=== PATIENT | male | born 1995 | race Caucasian/White ===

== ENCOUNTER 2024-02-28 14:44 | Emergency (ER) | payer OTHER, MEDICAID, SELFPAY ==
--- NOTE | 2024-02-28 14:42 | ED.SEIZURE ---
HPI - Seizure General Chief Complaint: Seizure Stated Complaint: Seizure Time Seen by Provider: 02/28/24 14:54 Source: patient, EMS, RN notes reviewed and old records reviewed Mode of arrival: EMS Limitations: no limitations History of Present Illness HPI Narrative: 28 year old male with autism, cochlear implants and pacemaker who comes in with concern for seizure activity. Mom states that he has been stuttering more today, she also states he has been having increased tremors. He does have essential tremor at baseline. She states he does sometimes have a little bit of stutter but was much worse yesterday into today. He was ambulating when he started have had some generalized shaking fell to the ground after being sort of caught up and furniture and lasted approximately 5 minutes with sort of decreased mentation initially and then improving over time. The she notes that they has been increasing his amitriptyline and weaning down his trazodone but he has also possibly stopped taking his clonazepam in the past week. He is on multiple medications. Allergic to sulfa, has had pacemaker and cochlear implants. No tobacco, alcohol or recreational drugs. Mom is his guardian. Related Data Home Medications Medication Instructions Recorded Confirmed Claritin 10 mg 02/28/24 amitriptyline 10 mg PO 02/28/24 cholecalciferol (vitamin D3) 25 25 mcg PO DAILY 02/28/24 02/28/24 mcg (1,000 unit) tablet clindamycin phosphate 1 % topical 1 applic topical DAILY 02/28/24 02/28/24 swab clonazepam 0.5 mg tablet 0.75 mg PO DAILY 02/28/24 02/28/24 famotidine 20 mg tablet 20 mg PO DAILY 02/28/24 02/28/24 fluoxetine 20 mg tablet 20 mg PO DAILY 02/28/24 02/28/24 fluticasone propionate 50 1 spray intranasal PRN PRN Allergy 02/28/24 02/28/24 mcg/actuation nasal Symptoms spray,suspension hydroxyzine HCl 10 mg tablet 10 mg PO BEDTIME 02/28/24 02/28/24 magnesium 200 mg tablet 200 mg PO DAILY 02/28/24 02/28/24 methylphenidate 20 mg/9 hr daily 20 mg transdermal DAILY 02/28/24 02/28/24 transdermal patch (Daytrana) multivitamin 1 tab PO DAILY 02/28/24 02/28/24 omega 1-vld-kwm-fish oil 02/28/24 potassium citrate 10 mEq (1,080 30 meq PO BID 02/28/24 02/28/24 mg) tablet,extended release prazosin 1 mg capsule 1 mg PO BEDTIME 02/28/24 02/28/24 propranolol 120 mg capsule,24 120 mg PO BEDTIME 02/28/24 02/28/24 hr,extended release risperidone 2 mg tablet 2 mg PO BEDTIME 02/28/24 02/28/24 trazodone 50 mg tablet 50 mg PO BEDTIME 02/28/24 02/28/24 Previous Rx's Medication Instructions Recorded clonazepam 0.5 mg tablet 0.75 mg (1.5 x 0.5 mg) PO BEDTIME 02/28/24 #20 tabs clonazepam 0.5 mg tablet 75 mg (150 x 0.5 mg) PO BEDTIME 02/28/24 #20 tabs Allergies Allergy/AdvReac Type Severity Reaction Status Date / Time Sulfa (Sulfonamide Allergy Unknown Verified 02/28/24 14:45 Antibiotics) Review of Systems Review of Systems ROS Unobtainable: All systems reviewed & are unremarkable except as noted in HPI and below Patient History Social History Smoking Status: Never smoker Exam Narrative Exam Narrative: GEN: well nourished, well appearing male, alert, patient appears to be in mild distress. HEENT: Atraumatic, pupils are equal round reactive to light, extraocular movements are intact, nares are clear, TMs are clear with no fluid, there is no conjunctival pallor. Throat is clear without any exudates, erythema, tonsillar enlargement or uvular deviation, no facial droop. HEART: Regular rate and rhythm without murmur, clicks, rubs. Pulses are equal in upper and lower extremities LUNGS:Lungs clear to auscultation, no wheezes, rales, crackles, chest moves symmetrically ABD:bowel sounds normal, soft, non-tender, no guarding, rebound, rigidity, no masses noted, no hepatosplenomegaly :No CVA tenderness MSCL: Non-tender, no muscle atrophy, muscles strength 5/5 upper and lower extremities, full range of motion. NEURO:CN 2-12 intact, sensation normal, no tremor. Initial Vital Signs Initial Vital Signs: Vital Signs Temperature 98.6 F 02/28/24 15:03 Pulse Rate 87 02/28/24 15:03 Respiratory Rate 19 02/28/24 15:03 Blood Pressure 137/89 02/28/24 15:03 Pulse Oximetry 99 02/28/24 15:03 Oxygen Delivery Method Room Air 02/28/24 15:03 Course Orders Ordered: Discontinued Medications Clonazepam (Clonazepam 0.5 Mg Tablet) 0.5 mg PO NOW ONE Stop: 02/28/24 15:44 Last Admin: 02/28/24 15:53 Dose: 0.5 mg Documented By: MICHELLE Levetiracetam 1,000 mg/ Sodium (Chloride) 110 mls @ 440 mls/hr IV NOW ONE Stop: 02/28/24 15:00 Last Infusion: 02/28/24 15:59 Dose: Infused Documented By: Admin: 02/28/24 15:42 Dose: 440 mls/hr Documented By: MICHELLE Sodium Chloride (Normal Saline 0.9%) 1,000 mls @ 1,000 mls/hr IV BOLUS ONE Stop: 02/28/24 16:00 Last Infusion: 02/28/24 17:39 Dose: Infused Documented By: Admin: 02/28/24 15:42 Dose: 1,000 mls/hr Documented By: MICHELLE Vital Signs Vital signs: Vital Signs - 8 hr 02/28/24 15:03 Temperature 98.6 F Pulse Rate 87 Respiratory Rate 19 Blood Pressure 137/89 Pulse Oximetry 99 Oxygen Delivery Method Room Air MDM - Seizure Lab Data 02/28/24 14:55 02/28/24 14:55 Labs: Lab Results 02/28/24 02/28/24 02/28/24 Range/Units 14:55 17:04 17:04 WBC 9.1 (4.5-11.0) X10^3/uL RBC 4.56 (4.5-5.9) X10^6/uL Hgb 14.1 (13.5-17.5) g/dL Hct 40.8 L (41-53) % MCV 89.4 (80-100) fL MCH 30.9 (26-34) PG MCHC 34.5 (30-36) % RDW 12.6 (11.6-14.8) % Plt Count 201 (150-400) X10^3/uL Neut % (Auto) 79.9 H (50-75) % Lymph % (Auto) 12.6 L (25-40) % [place] % (Auto) 6.9 (3-14) % Eos % (Auto) 0.4 L (2-4) % Baso % (Auto) 0.2 (0-2) % Neut # (Auto) 7300 H (8480-5683) /uL Lymph # (Auto) 1100 (8264-9712) /uL [place] # (Auto) 600 (0-900) /uL Eos # (Auto) 0 (0-450) /uL Baso # (Auto) 0 (0-100) /uL Sodium 138 (137-145) mmol/L Potassium 4.7 (3.4-5.1) mmol/L Chloride 106 (98-107) mmol/L Carbon Dioxide 26 (22-32) mmol/L BUN 16 (9-20) mg/dL Creatinine 0.78 (0.66-1.25) mg/dL Estimated GFR > 60 (>60) mL/min BUN/Creatinine Ratio 20.5 (6-22) Glucose 89 (70-100) mg/dL Calcium 9.5 (8.4-10.2) mg/dL Total Bilirubin 0.6 (0.2-1.3) mg/dL AST 30 (17-59) IU/L ALT 23 (<50) IU/L Alkaline Phosphatase 70 (38-126) U/L Total Creatine Kinase 86 (55-170) U/L Troponin I < 0.012 (0.01-0.034) ng/mL Total Protein 8.0 (6.3-8.2) g/dL Albumin 4.9 (3.5-5.0) g/dL Globulin 3.1 (1.7-4.1) g/dL Albumin/Globulin Ratio 1.6 (1.0-2.8) TSH 1.46 (0.47-4.68) uIU/mL Urine Color Yellow Urine Appearance Clear Urine pH 7.0 Normal (4.5-8.0) Ur Specific [place] 1.010 (1.000-1.035) Urine Protein Negative (Negative) Urine Glucose (UA) Negative (Negative) g/dL Urine Ketones Trace H (NEGATIVE) Urine Occult Blood Negative (Negative) Urine Nitrate Negative (Negative) Urine Bilirubin Negative (NEGATIVE) Urine Urobilinogen 0.2 (0.2) E.U./dL Ur Leukocyte Esterase Negative (NEGATIVE) Urine RBC None seen (0-5/HPF) Urine WBC 0-1/hpf (0-5/HPF) Ur Squamous Epith Cells None seen (0-5/HPF) Calcium Oxalate Crystal Occasional H Urine Bacteria Occasional (0-1) (None) Urine Mucus 1+ H (Negative) Ur Culture Indicated? Cult not indicated Vol Urine Centrifuged 10ml (spun) U Opiates 300ng/mL cut Negative (Negative) Ur Oxycodone Screen Negative (Negative) Urine Methadone Screen Negative (Negative) Ur Barbiturates Screen Negative (Negative) U Tricyclic Antidepress Positive H (Negative) Ur Phencyclidine Scrn Negative (Negative) Ur Amphetamines Screen Negative (Negative) U Methamphetamines Scrn Negative (Negative) Ur MDMA Scrn (Ecstasy) Negative (Negative) U Benzodiazepines Scrn Negative (Negative) Urine Cocaine Screen Negative (Negative) U Marijuana (THC) Screen Negative (Negative) Urine Specific [place] Normal (Normal) Ethyl Alcohol < 10 ( - 10) mg/dL Ur Creatinine Normal (Normal) Imaging Data Chest x-ray: Radiologist's Impression: [place] [address] XRay Report Signed Patient: Igor Connor MR#: [id number] : 1995 Acct:[id number] Age/Sex: 28 / M Date of Service: 02/28/24 Loc: ED Accession Number: [id number] Procedure: XR chest 1V Ordering Provider: Fannie Carranza D.O. PROCEDURE: XR CHEST 1V INDICATIONS: seizure like activity TECHNIQUE: One view of the chest was acquired. COMPARISON: None. FINDINGS: Surgical changes and devices: Left chest wall pacemaker leads are in the region of right atrium and right ventricle. Lungs and pleura: Lungs are clear. No pleural effusions or pneumothorax. Mediastinum: Mediastinal contours appear normal. Heart size is normal. Bones and chest wall: No suspicious bony lesions. Overlying soft tissues appear unremarkable. IMPRESSION: No acute cardiopulmonary pathology. Dictated by: Ian Gonsalez M.D. on 02/28/2024 at 15:31 Approved by: Ian Gonsalez M.D. on 02/28/2024 at 15:31 ECG Data Attestation: I personally reviewed and interpreted this ECG as follows: Prior ECG tracings: not available for review Interpretation: Sinus rhythm rate of 90 UT 132 QRS 82 QTC 442. No acute ST changes appreciated. No priors for comparison. MDM Narrative Medical decision making narrative: 28-year-old male had what sounds like seizure-like activity witnessed by his mother. Patient is autistic has cochlear implants has a pacemaker his mom is his legal guardian. Patient has recently had medication changes including starting amitriptyline weaning down trazodone and may have stopped his own clonazepam on his own in the past week. This may have contributed to potential seizure-like activity he does not have a known history. Per EMS glucose was 100, no significant arrhythmias or other changes for them. Mom states his mentation has been slowly improving during transport. Labs show white count of 9.1 hemoglobin of 14 platelets of 201, electrolytes are appropriate with a sodium of 138 creatinine 0.78 glucose 89 calcium of 9.5, negative troponin, TSH EKG shows sinus rhythm with a rate of the 90s Head CT shows no acute change, presents bilateral cochlear implants with significant beam hardening artifact. CT C-spine no acute fracture or traumatic subluxation. Chest x-ray no acute change. Patient received a 1L fluids to get a dose of Keppra here in the department, patient take 0.75 mg of clonazepam.? We will give a small oral dose of 0.5 mg as he has reportedly stopped this suddenly and was taking it daily before. Pacemaker was interrogated. Patient has dual-chamber pacemaker present for 5 years more atrial than ventricularly paced, atrial rate of 190 family 1:25 p.m. for 1 minute ventricular rate in the 150s. Patient has had prior episodes 2 or 3 times recently. Discussed with mom she called 911 leave it was happening which was 1:41 p.m. she did double check her phone. Unlikely source for his episode but discussed they need to follow up with Dr. Castillo which she is comfortable with them they state that his pacer is checked every 2 weeks. Suspect that he with his changes in medications since stopping clonazepam had significant chemical changes lowered seizure threshold. Plan for seizure precautions. We will stop adding the amitriptyline they will return to trazodone we will refill his clonazepam as they can not find the bottle. Patient feels improved here in the department and although still somewhat tired his mentation has returned to normal. All questions answered for both patient and his mother. Discharge Plan Departure Patient Disposition: Home Clinical Impression: Seizure Activity Restrictions/Additional Instructions: Please follow up with your primary care physician but there is also contact to follow up with neurology. Please call to set up an appointment tomorrow. Your pacemaker was interrogated and did show heart rate in the 150s for 1 minute approximately 20 minutes before your episode today, let Dr. Castillo know and follow up as needed. You may have had a seizure today I suspect it maybe related to changing your medications and suddenly stopping your clonazepam. Stop the amitriptyline. Continue with your trazodone your prior medication, please continue your clonazepam. Prescription was sent to [facility] in [place]. Please return for any alterations in mental status, recurrent seizure activity, difficulty with breathing, persistent vomiting, new changes with movement or other new or concerning changes. Prescriptions: New clonazepam 0.5 mg tablet 75 mg PO BEDTIME Qty: 20 0RF Rx Instructions: administer 30 minutes before bedtime clonazepam 0.5 mg tablet 0.75 mg PO BEDTIME Qty: 20 0RF Rx Instructions: administer 30 minutes before bedtime No Action amitriptyline 10 mg PO Patient Comments: Recent dose adjustment on 02/26/2024 cholecalciferol (vitamin D3) 25 mcg (1,000 unit) Tablet 25 mcg PO DAILY clindamycin phosphate [Clindamycin] 1 % Swab 1 applic TOPICAL DAILY clonazepam 0.5 mg Tablet 0.75 mg PO DAILY famotidine 20 mg Tablet 20 mg PO DAILY Patient Comments: at bedtime Rx Instructions: at bedtime fluoxetine 20 mg Tablet 20 mg PO DAILY fluticasone propionate [Flonase] 50 mcg/actuation [place],Suspension 1 spray INTRANASAL PRN PRN (Reason: Allergy Symptoms) Rx Instructions: administer into each nostril; as needed hydroxyzine HCl 10 mg Tablet 10 mg PO BEDTIME Claritin 10 mg Rx Instructions: at night magnesium 200 mg Tablet 200 mg PO DAILY methylphenidate [Daytrana] 20 mg/9 hr Patch 24 Hour 20 mg TRANSDERMAL DAILY Rx Instructions: do not leave patch on for more than 9 hrs multivitamin [Daily Multivitamin] Tablet 1 tab PO DAILY omega 0-jcs-cba-fish oil potassium citrate 10 mEq (1,080 mg) Tablet Extended Release 30 meq PO BID prazosin 1 mg Capsule 1 mg PO BEDTIME propranolol 120 mg Capsule,Extended Release 24 Hr 120 mg PO BEDTIME risperidone 2 mg Tablet 2 mg PO BEDTIME trazodone 50 mg Tablet 50 mg PO BEDTIME Referrals: Jose Castillo MD [Physician] - Miscellaneous,MD Idalmis [Primary Care Provider] - Shakeel Wilks MD [Non-Staff] - Stand Alone Forms: Patient Portal/API
--- NOTE | 2024-02-28 14:54 | DI.CT.S_ITS ---
PROCEDURE: CT CERVICAL SPINE WO CON INDICATIONS: seizure like activity, new onset, fall, cochlear implants TECHNIQUE: Noncontrast 3 mm thick sections acquired from the skull base to the T4 level. Sagittal and coronal reformats were then constructed. For radiation dose reduction, the following was used: automated exposure control, adjustment of mA and/or kV according to patient size. COMPARISON: None. FINDINGS: Image quality: Excellent. Bones: No fractures or dislocations. Visualized superior ribs are intact. Soft tissues: Prevertebral soft tissues are normal in thickness. No paravertebral hematomas. No apical pneumothoraces. Left chest wall pacemaker is seen. IMPRESSION: No displaced fracture or traumatic subluxation. Dictated by: Ian Gonsalez M.D. on 02/28/2024 at 15:34 Approved by: Ian Gonsalez M.D. on 02/28/2024 at 15:35
--- NOTE | 2024-02-28 14:54 | DI.RAD.S_ITS ---
PROCEDURE: XR CHEST 1V INDICATIONS: seizure like activity TECHNIQUE: One view of the chest was acquired. COMPARISON: None. FINDINGS: Surgical changes and devices: Left chest wall pacemaker leads are in the region of right atrium and right ventricle. Lungs and pleura: Lungs are clear. No pleural effusions or pneumothorax. Mediastinum: Mediastinal contours appear normal. Heart size is normal. Bones and chest wall: No suspicious bony lesions. Overlying soft tissues appear unremarkable. IMPRESSION: No acute cardiopulmonary pathology. Dictated by: Ian Gonsalez M.D. on 02/28/2024 at 15:31 Approved by: Ian Gonsalez M.D. on 02/28/2024 at 15:31
--- NOTE | 2024-02-28 14:54 | DI.CT.S_ITS ---
PROCEDURE: CT HEAD/BRAIN WO CON INDICATIONS: seizure like activity TECHNIQUE: Noncontrast 4.5 mm thick angled axial sections acquired from the foramen magnum to the vertex, with coronal and sagittal reformats. For radiation dose reduction, the following was used: automated exposure control, adjustment of mA and/or kV according to patient size. COMPARISON: None. FINDINGS: Image quality: Diagnostic. Bilateral cochlear implants are seen causing significant beam hardening artifacts. CSF spaces: Basal cisterns are patent. No extra-axial fluid collections. Ventricles are normal in size and shape. Brain: No midline shift. No intracranial masses or hemorrhage. [place]-white matter interface is normal. Skull and face: Calvarium and visualized facial bones are intact, without suspicious lesions. Sinuses: Visualized sinuses and mastoids are clear. IMPRESSION: 1. No gross acute intracranial pathology. 2. Presence of bilateral cochlear implants with significant beam hardening artifacts. Dictated by: Ian Gonsalez M.D. on 02/28/2024 at 15:35 Approved by: Ian Gonsalez M.D. on 02/28/2024 at 15:36
[2024-02-28 15:03] VITALS: BP 137/89; PULSE 87; RESP 19; TEMP 37; O2SAT 99; BMI 20.3
[2024-02-28 15:14] LABS: Add Manual Diff / Slide Review NO; Alanine Aminotransferase 23 IU/L (<50); Albumin 4.9 g/dL (3.5-5.0); Albumin Globulin Ratio 1.6 (1.0-2.8); Alkaline Phosphatase 70 U/L (38-126); Aspartate Aminotransferase 30 IU/L (17-59); BUN Creatinine Ratio 20.5 (6-22); Basophils Absolute Auto 0 /uL (0-100); Basophils Percent Auto 0.2 % (0-2); Bilirubin Total 0.6 mg/dL (0.2-1.3); Blood Urea Nitrogen 16 mg/dL (9-20); Calcium 9.5 mg/dL (8.4-10.2); Carbon Dioxide 26 mmol/L (22-32); Chloride 106 mmol/L (98-107); Creatine Kinase 86 U/L (55-170); Eosinophils Absolute Auto 0 /uL (0-450); Eosinophils Percent Auto 0.4 % (2-4); Estimated Glomerular Filt Rate > 60 mL/min (>60); Globulin 3.1 g/dL (1.7-4.1); Glucose 89 mg/dL (70-100); HEMOLYSIS < 15 (0-50); Hematocrit 40.8 % (41-53); Hemoglobin 14.1 g/dL (13.5-17.5); Lymphocytes Absolute Auto 1100 /uL (1100-4500); Lymphocytes Percent Auto 12.6 % (25-40); Mean Corpuscular HGB Conc 34.5 % (30-36); Mean Corpuscular Hemoglobin 30.9 PG (26-34); Mean Corpuscular Volume 89.4 fL (80-100); Monocytes Absolute Auto 600 /uL (0-900); Monocytes Percent Auto 6.9 % (3-14); Neutrophils Absolute Auto 7300 /uL (1500-7000); Neutrophils Percent Auto 79.9 % (50-75); Platelet Count 201 X10^3/uL (150-400); Potassium 4.7 mmol/L (3.4-5.1); Red Blood Cell Count 4.56 X10^6/uL (4.5-5.9); Red Cell Distribution Width 12.6 % (11.6-14.8); Sodium 138 mmol/L (137-145); White Blood Cell Count 9.1 X10^3/uL (4.5-11.0)
[2024-02-28 15:26] LABS: Troponin I < 0.012 ng/mL (0.01-0.034)
[2024-02-28] MEDS: SODIUM CHLORIDE 0.9% 1,000 ML 1000 ML IV (15:42)
[2024-02-28] MEDS: levETIRAcetam 1,000 MG in SODIUM CHLORIDE 0.9% 100 ML 440 MG IV (15:42)
[2024-02-28 15:44] LABS: Ethanol (ETOH) < 10 mg/dL
[2024-02-28 15:50] LABS: Thyroid Stimulating Hormone 1.46 uIU/mL (0.47-4.68)
[2024-02-28] MEDS: clonazePAM 0.5 MG TABLET PO (15:53)
[2024-02-28 17:11] LABS: Appearance Urine UA CLEAR; Bilirubin Urine UA NEGATIVE (NEGATIVE); Color Urine UA YELLOW; Glucose Urine UA NEGATIVE (Negative); Ketones Urine UA TRACE (NEGATIVE); Leukocyte Esterase Urine UA NEGATIVE (NEGATIVE); Nitrite Urine UA NEGATIVE (Negative); Occult Blood Urine UA NEGATIVE (Negative); Protein Urine UA NEGATIVE (Negative); Urobilinogen Urine UA 0.2 E.U./dL (0.2)
[2024-02-28 17:14] LABS: UR Morphine/Opiate cutoff 300 Negative (Negative); Ur Creatinine Normal (Normal); Ur Specific Gravity Normal (Normal); Urine Amphetamines Negative (Negative); Urine Cocaine Negative (Negative); Urine Tetrahydrocannabinol Negative (Negative); Urine pH Normal (Normal)
[2024-02-28 17:15] LABS: Urine Barbiturates Negative (Negative); Urine Benzodiazepines Negative (Negative); Urine MDMA Negative (Negative); Urine Methadone Negative (Negative); Urine Methamphetamines Negative (Negative); Urine Oxycodone Negative (Negative); Urine Phencyclidine Negative (Negative); Urine Tricyclic Antidepressant Positive (Negative)
[2024-02-28 17:19] LABS: Bacteria Urine Occasional (0-1); Calcium Oxalate Crystals Urine Occasional; Culture Indicated Urine Cult Not Indicated; RBC Urine None Seen (0-5/HPF); Squamous Epithelial Cell Urine None Seen (0-5/HPF); Urine Volume 10mL (spun); WBC Urine 0-1/HPF (0-5/HPF)
[2024-02-28 17:20] LABS: Mucus Urine 1+ (Negative)
== END 2024-02-28 18:15 | disposition home or self-care (01) ==
PROVIDERS: Emergency Provider Emergency Medicine
DX: R56.9 Unspecified convulsions (principal); Z95.0 Presence of cardiac pacemaker
CPT/HCPCS: 36415; 70450; 71045; 72125; 80053; 80305; 80320; 81001; 82550; 84443; 84484; 85025; 93005; 96361; 96365; 99284; J1953

== ENCOUNTER 2025-08-18 19:27 | Emergency (ER) | payer OTHER, MEDICAID, SELFPAY ==
[2025-08-18 19:41] VITALS: BP 120/58; PULSE 63; RESP 16; TEMP 36.9; O2SAT 98; BMI 18.0
[2025-08-18] MEDS: ACETAMINOPHEN 325 MG TABLET 650 MG PO (19:50)
--- NOTE | 2025-08-18 22:25 | ED.HEATRA ---
HPI - Head Injury General Chief complaint: Head Injury Stated complaint: Head injury from board, dizzy, visual dist. Time Seen by Provider: 08/18/25 22:08 Source: patient and family Mode of arrival: Ambulatory History of Present Illness HPI Narrative: 30-year-old male with history of deafness, communicates via Signed Exact Japanese (SEE) form of sign language, mother at bedside providing SEE sign language interpretation per their preference. This afternoon 2 p.m. earlier today was struck left forehead area with walking stick, no loss of consciousness, four hours later about 6:00 p.m. started having global headache, some dizziness and double vision, no nausea or vomiting. No left eye pain or unilateral vision problem. Symptoms seemed to be improving. Given Tylenol in the waiting room. No blood thinner medications. No prior neurosurgical interventions. Related Data Home Medications ?Medication ?Instructions ?Recorded ?Confirmed Claritin 10 mg 02/28/24 amitriptyline 10 mg PO 02/28/24 cholecalciferol (vitamin D3) 25 25 mcg PO DAILY 02/28/24 02/28/24 mcg (1,000 unit) tablet clindamycin phosphate 1 % topical 1 applic topical DAILY 02/28/24 02/28/24 swab clonazepam 0.5 mg tablet 0.75 mg PO DAILY 02/28/24 02/28/24 famotidine 20 mg tablet 20 mg PO DAILY 02/28/24 02/28/24 fluoxetine 20 mg tablet 20 mg PO DAILY 02/28/24 02/28/24 fluticasone propionate 50 1 spray intranasal PRN PRN Allergy 02/28/24 02/28/24 mcg/actuation nasal Symptoms spray,suspension hydroxyzine HCl 10 mg tablet 10 mg PO BEDTIME 02/28/24 02/28/24 magnesium 200 mg tablet 200 mg PO DAILY 02/28/24 02/28/24 methylphenidate 20 mg/9 hr daily 20 mg transdermal DAILY 02/28/24 02/28/24 transdermal patch (Daytrana) multivitamin 1 tab PO DAILY 02/28/24 02/28/24 omega 9-xhw-jvl-fish oil 02/28/24 potassium citrate 10 mEq (1,080 30 meq PO BID 02/28/24 02/28/24 mg) tablet,extended release prazosin 1 mg capsule 1 mg PO BEDTIME 02/28/24 02/28/24 propranolol 120 mg capsule,24 120 mg PO BEDTIME 02/28/24 02/28/24 hr,extended release risperidone 2 mg tablet 2 mg PO BEDTIME 02/28/24 02/28/24 trazodone 50 mg tablet 50 mg PO BEDTIME 02/28/24 02/28/24 Previous Rx's ?Medication ?Instructions ?Recorded clonazepam 0.5 mg tablet 0.75 mg (1.5 x 0.5 mg) PO BEDTIME 02/28/24 #20 tabs clonazepam 0.5 mg tablet 75 mg (150 x 0.5 mg) PO BEDTIME 02/28/24 #20 tabs Allergies Allergy/AdvReac Type Severity Reaction Status Date / Time Sulfa (Sulfonamide Allergy Unknown Verified 08/18/25 19:41 Antibiotics) Patient History Social History Smoking Status: Never smoker Smoking Status: Never smoker alcohol intake frequency: holidays/special occasions only Exam Narrative Exam Narrative: GENERAL: Well-developed patient, in mild distress. HEAD: Atraumatic. Normocephalic. EYES: Pupils equal round and reactive. Extraocular motions intact. No scleral icterus. No injection or drainage. Conjugate gaze, no diplopia symptoms or exacerbation of symptoms with eye movements horizontal or vertical bond. ENT: No obvious craniofacial traumatic injury changes NECK: Trachea midline. Non tender CARDIOVASCULAR: Regular rate and rhythm without murmurs, gallops, or rubs. RESPIRATORY: Clear to auscultation. Breath sounds equal bilaterally. No wheezes, rales, or rhonchi. GASTROINTESTINAL: Abdomen soft, non-tender, nondistended. EXTREMITIES: No edema or joint tenderness. BACK: Nontender without deformity or crepitance. No flank tenderness. NEURO: AOx3. Deafness, communication via sign language with mother at bedside. No obvious diplopia with horizontal or vertical eye movements. Motor functions grossly nonfocal. SKIN: No rash or erythema of visible areas Initial Vital Signs Initial Vital Signs: Vital Signs Temperature 98.4 F 08/18/25 19:41 Pulse Rate 63 08/18/25 19:41 Respiratory Rate 16 08/18/25 19:41 Blood Pressure 120/58 L 08/18/25 19:41 Pulse Oximetry 98 08/18/25 19:41 Oxygen Delivery Method Room Air 08/18/25 19:41 Course Orders Ordered: ED Orders 08/18/25 23:02 CT head/brain wo con Stat Discontinued Medications Acetaminophen (Acetaminophen 325 Mg Tablet) 650 mg PO NOW ONE Stop: 08/18/25 19:48 Last Admin: 08/18/25 19:50 Dose: 650 mg Documented By: BETTE Vital Signs Vital signs: Vital Signs - 8 hr 08/18/25 22:43 08/18/25 23:00 08/18/25 23:09 Pulse Rate 60 60 69 Respiratory Rate Blood Pressure Pulse Oximetry 99 99 98 Oxygen Delivery Method 08/18/25 23:09 08/18/25 23:18 08/18/25 23:18 Pulse Rate 69 Respiratory Rate 16 Blood Pressure 111/55 L 121/62 Pulse Oximetry 98 Oxygen Delivery Method 08/18/25 23:30 08/18/25 23:30 08/19/25 00:00 Pulse Rate 61 60 Respiratory Rate Blood Pressure 108/62 Pulse Oximetry 98 98 Oxygen Delivery Method 08/19/25 00:00 08/19/25 00:30 08/19/25 00:30 Pulse Rate 65 Respiratory Rate Blood Pressure 112/59 L 112/58 L Pulse Oximetry 98 Oxygen Delivery Method Room Air 08/19/25 01:00 08/19/25 01:00 Pulse Rate 60 Respiratory Rate Blood Pressure 113/58 L Pulse Oximetry 98 Oxygen Delivery Method MDM - Head Injury Imaging Data CT scan - head: Radiologist's Impression: [place] [address] CT Scan Report Signed Patient: Igor Connor MR#: [id number] : 1995 Acct:[id number] Age/Sex: 30 / M Date of Service: 08/18/25 Loc: ED Accession Number: [id number] Procedure: CT head/brain wo con Ordering Provider: Guillaume Perdomo MD PROCEDURE: CT HEAD/BRAIN WO CON INDICATIONS: Head injury, double vision TECHNIQUE: Noncontrast 4.5 mm thick angled axial sections acquired from the foramen magnum to the vertex, with coronal and sagittal reformats. For radiation dose reduction, the following was used: automated exposure control, adjustment of mA and/or kV according to patient size. COMPARISON: [facility], CT, CT HEAD/BRAIN WO CON, 02/28/2024, 15:09. FINDINGS: Image quality: Diagnostic. Beam hardening artifact. CSF spaces: Basal cisterns are patent. No extra-axial fluid collections. Ventricles are normal in size and shape. Brain: No midline shift. No intracranial mass effect or hemorrhage. [place]-white matter interface is normal. Skull and face: Calvarium and visualized facial bones are intact, without suspicious lesions. Cochlear implants. Sinuses: Visualized sinuses and mastoids are clear. IMPRESSION: No acute intracranial pathology identified. Dictated by: Zion Prather M.D. on 08/19/2025 at 0:59 Approved by: Zion Prather M.D. on 08/19/2025 at 1:01 [facility] Narrative Medical decision making narrative: 30-year-old male with history of deafness, history via mother at bedside signing in SEE form of sign language not available thru site interpreter ASL services. Was struck with walking stick over left forehead/eyebrow area this afternoon, few hours later having increasing headache, some double vision, no focal neuro symptoms. No nausea or vomiting. CT head noncontrast ordered. CT noncontrast, no acute changes. See radiology report. No double vision with range of motion of conjugate gaze horizontal and vertical bond, doubt extraocular muscle entrapment clinically, did not pursue CT face/orbit advanced imaging. Mother was in agreement. Consider diagnosis clinical basis closed head injury with concussion. Advised cognitive and physical rest for the next 48 hours, no driving or operating machinery. Consider recheck in eye clinic, contact information given for ophthalmology offices local, to call tomorrow during regular hours for close follow up further evaluation of mild diplopia symptoms. No demonstrable or exacerbation of diplopia symptoms with finger testing and range of motion extraocular muscle testing. Concussion warnings discussed with patient and mother. Discharged home with family. Recheck advised with PCP in the next 48 hours. Return precautions discussed. Discharge Plan Departure Patient Disposition: Home Clinical Impression: Concussion without loss of consciousness, Closed head injury, Double vision Activity Restrictions/Additional Instructions: Head injury from walking stick above left eyebrow yesterday afternoon, no loss of consciousness, interval later headache with dizziness and some double vision. No double vision seemed to be demonstrable with confrontational bond moving eyes back and forth with finger counting, seems less likely any entrapment of extraocular muscles of the eyeball. CT head noncontrast study was negative for any acute brain injuries, no bony changes noted. Consider concussion without loss of consciousness, with persisting diplopia double vision. Advised cognitive and physical rest for the next 48 hours. Consider follow up further with eye clinic. [facility] contact information provided, to call later this morning during open hours to arrange close follow up. Recheck concussive symptoms with your regular doctor in the next 48 hours. Operating of machinery or any driving advised until further cleared. Consider taking [id number] Tylenol and or Motrin as needed for pain control. Return to this/nearest emergency department for any change worsening symptoms or any concerns prior. Prescriptions: No Action amitriptyline 10 mg PO Patient Comments: Recent dose adjustment on 02/26/2024 cholecalciferol (vitamin D3) 25 mcg (1,000 unit) Tablet 25 mcg PO DAILY clindamycin phosphate [Clindamycin] 1 % Swab 1 applic TOPICAL DAILY clonazepam 0.5 mg Tablet 0.75 mg PO DAILY famotidine 20 mg Tablet 20 mg PO DAILY Patient Comments: at bedtime Rx Instructions: at bedtime fluoxetine 20 mg Tablet 20 mg PO DAILY fluticasone propionate [Flonase] 50 mcg/actuation [place],Suspension 1 spray INTRANASAL PRN PRN (Reason: Allergy Symptoms) Rx Instructions: administer into each nostril; as needed hydroxyzine HCl 10 mg Tablet 10 mg PO BEDTIME Claritin 10 mg Rx Instructions: at night magnesium 200 mg Tablet 200 mg PO DAILY methylphenidate [Daytrana] 20 mg/9 hr Patch 24 Hour 20 mg TRANSDERMAL DAILY Rx Instructions: do not leave patch on for more than 9 hrs multivitamin [Daily Multivitamin] Tablet 1 tab PO DAILY omega 9-mmi-ech-fish oil potassium citrate 10 mEq (1,080 mg) Tablet Extended Release 30 meq PO BID prazosin 1 mg Capsule 1 mg PO BEDTIME propranolol 120 mg Capsule,Extended Release 24 Hr 120 mg PO BEDTIME risperidone 2 mg Tablet 2 mg PO BEDTIME trazodone 50 mg Tablet 50 mg PO BEDTIME clonazepam 0.5 mg tablet 75 mg PO BEDTIME Qty: 20 0RF Rx Instructions: administer 30 minutes before bedtime clonazepam 0.5 mg tablet 0.75 mg PO BEDTIME Qty: 20 0RF Rx Instructions: administer 30 minutes before bedtime Referrals: Gwen Dominguez MD [Physician, Ophthalmology] All Pantoja MD [Physician, Ophthalmology] Miscellaneous,DoctorMD [Primary Care Provider, Medical] Stand Alone Forms: Patient Portal/API
[2025-08-18 22:43] VITALS: PULSE 60; O2SAT 99
[2025-08-18 23:00] VITALS: PULSE 60; O2SAT 99
--- NOTE | 2025-08-18 23:02 | DI.CT.S_ITS ---
PROCEDURE: CT HEAD/BRAIN WO CON INDICATIONS: Head injury, double vision TECHNIQUE: Noncontrast 4.5 mm thick angled axial sections acquired from the foramen magnum to the vertex, with coronal and sagittal reformats. For radiation dose reduction, the following was used: automated exposure control, adjustment of mA and/or kV according to patient size. COMPARISON: [facility], CT, CT HEAD/BRAIN WO CON, 02/28/2024, 15:09. FINDINGS: Image quality: Diagnostic. Beam hardening artifact. CSF spaces: Basal cisterns are patent. No extra-axial fluid collections. Ventricles are normal in size and shape. Brain: No midline shift. No intracranial mass effect or hemorrhage. [place]- white matter interface is normal. Skull and face: Calvarium and visualized facial bones are intact, without suspicious lesions. Cochlear implants. Sinuses: Visualized sinuses and mastoids are clear. IMPRESSION: No acute intracranial pathology identified. Dictated by: Zion Prather M.D. on 08/19/2025 at 0:59 Approved by: Zion Prather M.D. on 08/19/2025 at 1:01
[2025-08-18 23:09] VITALS: BP 111/55; PULSE 69; O2SAT 98
[2025-08-18 23:18] VITALS: BP 121/62; PULSE 69; RESP 16; O2SAT 98
[2025-08-18 23:30] VITALS: BP 108/62; PULSE 61; O2SAT 98
[2025-08-19] VITALS: BP 112/59; PULSE 60; O2SAT 98
[2025-08-19 00:30] VITALS: BP 112/58; PULSE 65; O2SAT 98
[2025-08-19 01:00] VITALS: BP 113/58; PULSE 60; O2SAT 98
== END 2025-08-19 01:33 | disposition home or self-care (01) ==
PROVIDERS: Emergency Provider Emergency Medicine
DX: S06.0X0A Concussion without loss of consciousness, initial encounter (principal); H53.2 Diplopia; R42 Dizziness and giddiness; W22.8XXA Striking against or struck by other objects, initial encounter
CPT/HCPCS: 70450; 99283; 99284